=== PATIENT | male | born 1960 | race Caucasian/White ===

== ENCOUNTER → 2016-03-08 | Outpatient (CLI) | payer OTHER ==
[2016-03-09 15:20] LABS: ASPARTATE AMINO TRANSFERASE 26 IU/L (21-57); BILIRUBIN,TOTAL 0.4 mg/dL (0.3-1.2); BLOOD UREA NITROGEN 13 mg/dL (7-22); BUN/CREATININE RATIO 16.25 (6-20); CALCIUM 9.2 mg/dL (8.7-10.7); CHLORIDE 97 meq/L (98-112); CREATININE 0.8 mg/dL (0.70-1.50); EST GLOMERULAR FILTRATION > 60 (>60 ml/min/1.73m(2)); GLUCOSE 93 mg/dL (78-110); SODIUM 136 meq/L (135-145); TOTAL PROTEIN 6.7 g/dL (6.1-8.0)
== END ==
LOC: LAB 15:39
PROVIDERS: ATTEND Physician Assistant Medical
DX: R10.11 Right upper quadrant pain (principal); R56.9 Unspecified convulsions; Z79.899 Other long term (current) drug therapy
CPT/HCPCS: 80053; 80156; 80177; 83690

== ENCOUNTER → 2016-03-10 | Outpatient (CLI) | payer OTHER | LOC: LAB 11:51 | PROVIDERS: ATTEND Physician Assistant Medical | DX: R30.0 Dysuria (principal) | CPT/HCPCS: 87077; 87088; 87186 ==

== ENCOUNTER → 2016-05-02 | Outpatient (CLI) | payer OTHER ==
[2016-05-04 11:01] LABS: PSATOTAL 3.5 ng/mL (<=3.5)
[2016-05-04 13:39] LABS: FREE PSA/PSA RATIO SEE COMMENTS ratio (())
== END ==
LOC: LAB 10:44
PROVIDERS: ATTEND Physician Assistant Medical
DX: I48.2 Chronic atrial fibrillation (principal); N39.0 Urinary tract infection, site not specified
CPT/HCPCS: 84153; 84154; 85610

== ENCOUNTER → 2016-06-20 | Outpatient (CLI) | payer OTHER ==
[2016-06-23 11:21] LABS: TTG AB IGA <1.2 U/mL (())
[2016-06-29 07:10] LABS: IGA, SERUM 141 mg/dL (61 - 356)
== END ==
LOC: LAB 09:41
PROVIDERS: ATTEND Physician Assistant Medical
DX: R10.84 Generalized abdominal pain (principal); K59.00 Constipation, unspecified; R63.4 Abnormal weight loss
CPT/HCPCS: 81376; 82784; 87338